=== PATIENT | male | born 1990 | race Caucasian/White ===

== ENCOUNTER 2019-08-07 21:47 | Emergency (ER) | payer MEDICAID ==
[~2019-08-07] VITALS: Ht 167.6 cm; Wt 65.8 kg
--- NOTE | 2019-08-07 21:47 | NUR ---
PT TAKEN TO BED 5 VIA GURNEY. PT NEGATIVE COVID SCREEN.
[2019-08-07 21:57] VITALS: BP 121/75
--- NOTE | 2019-08-07 21:58 | NUR ---
PT DENIES MEDHX AND ALLERGIES.
--- NOTE | 2019-08-07 22:00 | NUR ---
RECEIVED A 28/M FROM EMS FOR ALOC SECONDARY TO ETOH USE. PT ADMITS TO DRINKING "QUITE A BIT OF VODKA" TONIGHT. OBVIOUS ODOR OF EOTH PRESENT. ALERT TO NAME, BIRTHDAY, AND PLACE. UNABLE TO RECALL EVENT. NEGATIVE COVID SCREEN AT THIS TIME. IN BED FOR MSE. ATTATCHED TO CARDIAC MONITORING.
--- NOTE | 2019-08-07 22:01 | NUR ---
URINAL LEFT AT BEDSIDE.
[2019-08-07 22:44] LABS: BASOPHILS % (AUTO) 0.5 % (0.0-2.0); HEMATOCRIT 44.5 % (36-52); HEMOGLOBIN 14.8 g/dL (12.0-18.0); LYMPHOCYTES # (AUTO) 1.8 K/uL (2.0-11.5); LYMPHOCYTES % (AUTO) 34.9 % (20.5-51.1); MEAN CORPUSCULAR HEMOGLOBIN 31 pg (27-31); MEAN CORPUSCULAR HGB CONC 33 g/dL (33-37); MEAN CORPUSCULAR VOLUME 93.8 fL (80-94); MONOCYTES # (AUTO) 0.3 K/uL (0.8-1.0); MONOCYTES % (AUTO) 6.3 % (1.7-9.3); NEUTROPHILS # (AUTO) 2.9 K/uL (1.8-7.7); NEUTROPHILS % (AUTO) 58.3 % (42.2-75.2); PLATELET COUNT (AUTO) 191 K/uL (140-450); RED BLOOD CELL COUNT(AUTO) 4.75 MIL/uL (4.20-6.10); RED CELL DISTRIBUTION WIDTH 15.4 % (11.6-13.7)
[2019-08-07] MEDS ORDERED: NACL 0.9% 1,000 ML IV ONE (22:45)
[2019-08-07 22:54] LABS: ANION GAP 21.4 (8-16); CARBON DIOXIDE 22.1 mmol/L (21-32); CHLORIDE 104 mmol/L (98-107); GFR ARICAN-AMERICAN 114 mL/min (>90); GLUCOSE 91 mg/dL (74-106); POTASSIUM 3.5 mmol/L (3.5-5.1); SODIUM SERUM 144 mmol/L (136-145); UREA NITROGEN, BLOOD 6 mg/dL (7-18)
[2019-08-07 23:02] LABS: ACETAMINOPHEN < 0.5 ug/ml (10-30); ALBUMIN 4.4 g/dL (3.4-5.0); ASPARTATE AMINOTRANSFERASE 27 U/L (15-37); SALICYLATE 3.9 mg/dL (2.8-20.0); TOTAL BILIRUBIN 0.2 mg/dL (0.0-1.0)
--- NOTE | 2019-08-07 23:15 | NUR ---
PT removed IV, catheter intact and site benign. Applied folded 4x4 gauze and tape to stop bleeding. ERMD MADE AWARE. NO NEW ORDERS AT THIS TIME.
--- NOTE | 2019-08-07 23:24 | NUR ---
PT RESTING IN BED EYES CLOSED. RESPONDS TO VERBAL STIMULI. DENIES PAIN. RESPIRATIONS AR EEVEN AND UNLABORED. PT ON MONTIOR. BEDSIDE RAIL UP X1.
[2019-08-07 23:56] LABS: BARBITURATE, URINE NEGATIVE ng/ml (NEG <=200); BENZODIAZEPINE, URINE NEGATIVE ng/mL (NEG <=200); CANNABINOID, URINE POSITIVE ng/mL (NEG <=50); COCAINE, URINE NEGATIVE ng/mL (NEG <=300); OPIATE, URINE NEGATIVE ng/mL (NEG <=2000); PHENCYCLIDINE SCREEN,URINE NEGATIVE ng/mL (NEG <=25)
--- NOTE | 2019-08-08 00:18 | NUR ---
PT RESPONSIVE TO VERBAL STIMULI. DENIES PAIN. RESPIRATIONS ARE EVEN AND UNLABORED. PT ON MONTIOR. VSS. BEDSIDE RAIL UP X1.
--- NOTE | 2019-08-08 00:58 | NUR ---
ATTEMPTED TO AMBULATE PATIENT -- STILL UNSTEADY GAIT. SANDWICH PROVIDED. EATING WITHOUT DIFFICULTY.
--- NOTE | 2019-08-08 01:15 | NUR ---
AMBULATORY TO RESTROOM WITHOUT DIFFICULTY. ALERT TO NAME, BIRTHDAY, PLACE, AND EVENT. OKAY TO D/C PER DR ARTHUR.
[2019-08-08 01:36] VITALS: BP 127/64
--- NOTE | 2019-08-08 01:36 | NUR ---
Patient discharged with v/s stable. Written and verbal after care instructions given and explained. Patient alert, oriented and verbalized understanding of instructions. Ambulatory with steady gait. All questions addressed prior to discharge. ID band removed. Patient advised to follow up with PMD. Rx of NO MEDS GIVEN given. Patient educated on indication of medication including possible reaction and side effects. Opportunity to ask questions provided and answered.
== END 2019-08-08 01:36 | disposition home or self-care (01) ==
LOC: EDBD 21:47 → MED 21:47
DX: F10.129 Alcohol abuse with intoxication, unspecified (principal); R41.82 Altered mental status, unspecified; F12.90 Cannabis use, unspecified, uncomplicated; Z71.6 Tobacco abuse counseling
CPT/HCPCS: 36415; 80053; 80305; 85025; 96360; 99283; G0480; G0482; J7030

== ENCOUNTER 2019-08-16 16:06 | Emergency (ER) | payer MEDICAID ==
[~2019-08-16] VITALS: Ht 167.6 cm; Wt 66.7 kg
[2019-08-16 16:16] VITALS: BP 131/81
--- NOTE | 2019-08-16 16:23 | NUR ---
AMB TO BED 06
--- NOTE | 2019-08-16 16:35 | NUR ---
29/M C/O ETOH "POISIONING" AND STATES HIS SEIZURE AURA IS PRESENT AND HE THINKS HE IS GOING TO HAVE A SEIZURE. PT STATES HE ONLY DRANK 1 TALL CAN TODAY BUT HAS BEEN BINGE DRINKING FOR 4-5 DAYS. PT STATES "MY HANDS FEEL NUMB AND MY LIVER HURTS". STATES A DARK SPOT IN HIS VISION IN BL EYES NOW WHICH ALWAYS OCCURS BEFORE A SEIZURE. DENIES LOC OR TRAUMA TODAY. LAST SEIZURE 2 WEEKS AGO. REPORTS COMPLIANCE WITH KEPPRA. RUQ PAIN X TODAY, CONSTANT, SHARP/ACHY, 10/22. STATES NAUSEA WITHOUT VOMITING. MILD DIZZINESS AND GENERALIZED WEAKNESS. STATES AVM @UNSPECIFIED SITE CAUSES SEIZURES DESCRIBED "VIOLENT CONVULSIONS WITH LOC". 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
[2019-08-16] MEDS ORDERED: NACL 0.9% 1,000 ML IV SCH (16:46)
[2019-08-16] MEDS ORDERED: ONDANSETRON 4 MG/2 ML VIAL IVP ONE (16:50)
[2019-08-16 17:15] LABS: BASOPHILS % (AUTO) 0.6 % (0.0-2.0); HEMATOCRIT 42.7 % (36-52); HEMOGLOBIN 14.5 g/dL (12.0-18.0); LYMPHOCYTES % (AUTO) 37.6 % (20.5-51.1); MEAN CORPUSCULAR HEMOGLOBIN 31 pg (27-31); MEAN CORPUSCULAR HGB CONC 34 g/dL (33-37); MEAN CORPUSCULAR VOLUME 91.8 fL (80-94); MONOCYTES # (AUTO) 0.3 K/uL (0.8-1.0); MONOCYTES % (AUTO) 5.7 % (1.7-9.3); NEUTROPHILS # (AUTO) 2.9 K/uL (1.8-7.7); NEUTROPHILS % (AUTO) 56.1 % (42.2-75.2); PLATELET COUNT (AUTO) 196 K/uL (140-450); RED BLOOD CELL COUNT(AUTO) 4.66 MIL/uL (4.20-6.10); RED CELL DISTRIBUTION WIDTH 15.4 % (11.6-13.7); WHITE BLOOD COUNT (AUTO) 5.2 K/uL (4.8-10.8)
--- NOTE | 2019-08-16 17:18 | NUR ---
DR. VALENTE AT BEDSIDE
[2019-08-16] MEDS ORDERED: levETIRAcetam 500 MG TAB PO ONE (17:20)
[2019-08-16] MEDS ORDERED: LORazepam 2 MG/ML VIAL IVP ONE ×2 (17:20→18:45)
[2019-08-16 17:29] LABS: ALBUMIN 3.8 g/dL (3.4-5.0); ANION GAP 16.4 (8-16); CARBON DIOXIDE 26.9 mmol/L (21-32); POTASSIUM 3.3 mmol/L (3.5-5.1); TOTAL BILIRUBIN 0.3 mg/dL (0.0-1.0)
[2019-08-16] MEDS ORDERED: NACL 0.9% 1,000 ML IV ONE ×2 (18:45→20:05)
--- NOTE | 2019-08-16 18:53 | NUR ---
PT DENIES PAIN AT THIS TIME
--- NOTE | 2019-08-16 19:14 | NUR ---
REPORT TO KELLIE LANDIS, TRANSFER OF CARE AT THIS TIME
--- NOTE | 2019-08-16 19:24 | NUR ---
PATIENT ALERT AND AWAKE, BREATHING EVEN AND UNLABORED. STATES HE IS FEELING BETTER THAN BEFORE, SEIZURE PRECAUTIONS IN PLACE
[2019-08-16] MEDS ORDERED: LORazepam 1 MG TAB PO ONE (20:05)
--- NOTE | 2019-08-16 20:30 | NUR ---
PATIENT AOX4, BREATHING EVEN AND UNLABORED
--- NOTE | 2019-08-16 21:23 | NUR ---
Patient discharged with v/s stable. Written and verbal after care instructions given and explained. Patient alert, oriented and verbalized understanding of instructions. Ambulatory with steady gait. All questions addressed prior to discharge. ID band removed. Patient advised to follow up with PMD. Rx of JOY CLIFTON given. Patient educated on indication of medication including possible reaction and side effects. Opportunity to ask questions provided and answered.
[2019-08-16 21:24] VITALS: BP 125/72
== END 2019-08-16 21:23 | disposition home or self-care (01) ==
LOC: MED 16:06
DX: F10.239 Alcohol dependence with withdrawal, unspecified (principal); R56.9 Unspecified convulsions; R11.0 Nausea
CPT/HCPCS: 36415; 80053; 83690; 85025; 96374; 96375; 99284; G0482; J2060; J2405; J7030

== ENCOUNTER 2019-12-19 14:51 | Emergency (ER) | payer MEDICAID ==
[~2019-12-19] VITALS: Ht 167.6 cm; Wt 68.0 kg
[~2019-12-19 14:51] MED LIST: KEP500 PO; LIB5 PO
[2019-12-19 14:57] VITALS: BP 117/68
[2019-12-19] MEDS ORDERED: levETIRAcetam 500 MG TAB PO ONE (15:35)
--- NOTE | 2019-12-19 15:40 | NUR ---
PT STATES THAT HE HAD RUN OUT OF KEPPRA MEDICATION AT HOME AND NEEDED A MEDICATION REFILL. HE STATES THAT LAST TIME MEDICATION WAS TAKEN WAS YESTERDAY AT NIGHT. PT AOX4, BREATHING EVEN AND UNLABORED, SKIN WARM AND DRY. BED IN LOWEST POSITION, LOCKED, BED RAIL UPX1. PMH - SEIZURE ALLERGIES - NKA
[2019-12-19 16:20] VITALS: BP 103/65
--- NOTE | 2019-12-19 16:20 | NUR ---
Patient discharged with v/s stable. Written and verbal after care instructions about seizures given and explained. Patient alert, oriented and verbalized understanding of instructions. Ambulatory with steady gait. All questions addressed prior to discharge. ID band removed. Patient advised to follow up with PMD. Rx of keppra given. Patient educated on indication of medication including possible reaction and side effects. Opportunity to ask questions provided and answered.
== END 2019-12-19 16:20 | disposition home or self-care (01) ==
LOC: MED 14:51
DX: R56.9 Unspecified convulsions (principal); Z76.0 Encounter for issue of repeat prescription; Z79.899 Other long term (current) drug therapy
CPT/HCPCS: 99283

== ENCOUNTER 2020-06-13 11:02 | Emergency (ER) | payer MEDICAID ==
[~2020-06-13] VITALS: Ht 167.6 cm; Wt 59.0 kg
[2020-06-13 11:06] VITALS: BP 102/52
[2020-06-13 12:20] VITALS: BP 102/52
== END 2020-06-13 12:21 | disposition home or self-care (01) ==
LOC: MED 11:02
DX: S62.607A Fracture of unspecified phalanx of left little finger, initial encounter for closed fracture (principal); F12.10 Cannabis abuse, uncomplicated; Z79.899 Other long term (current) drug therapy; V00.131A Fall from skateboard, initial encounter; Y93.89 Activity, other specified; Y92.89 Other specified places as the place of occurrence of the external cause; Y99.8 Other external cause status
CPT/HCPCS: 73140; 99283